=== PATIENT | female | born 1990 | race Two or more races ===

== ENCOUNTER 2022-07-25 01:44 | Inpatient (IN) | payer MEDICAID ==
[2022-07-25] VITALS (10 sets, daily range): BP systolic 125–166; BP diastolic 71–113
[~2022-07-25] VITALS: Ht 160 cm; Wt 65.8 kg
[2022-07-25] MEDS ORDERED: LACTATED RINGER'S 1,000 ML IV ONE (02:15)
[2022-07-25] MEDS ORDERED: hydrALAZINE HCL 20 MG/ML VL IV PRN (02:30)
[2022-07-25 02:31] LABS: Basophils # (auto) 0.2 10 ^3/uL (0-0.2); Basophils % (auto) 1.4 % (0.0-2.0); Eosinophils # (auto) 0.1 10 ^3/uL (0-0.8); Eosinophils % (auto) 0.9 % (0.0-7.0); Hematocrit 31.6 % (36.0-46.0); Hemoglobin 10.2 g/dL (12.2-16.2); Lymphocytes % (auto) 23.4 % (10.0-50.0); Mean Corpuscular Hemoglobin 24.8 pg (28.0-32.0); Mean Corpuscular Hgb Conc. 32.4 g/dL (32.0-36.0); Mean Corpuscular Volume 76.6 fL (80.0-100.0); Monocytes # (auto) 0.7 10 ^3/uL (0-1.3); Monocytes % (auto) 5.3 % (0.0-12.0); Neutrophils # (auto) 8.9 10 ^3/uL (1.6-8.6); Nucleated Red Blood Cells % 0.1 %; Red Blood Cells 4.12 10^6/uL (4.0-5.20); Red Cell Distribution Width 17.5 % (11.8-14.3); White Blood Cell 12.9 10^3/uL (4.4-10.8)
[2022-07-25] MEDS ORDERED: PHISODERM TOP SOLN 240ML BTL TOP PRN (02:45)
[2022-07-25] MEDS ORDERED: PROMETHAZINE HCL 25 MG/ML 1ML IV PRN (02:45)
[2022-07-25] MEDS ORDERED: DERMOPLAST 60ML BOTTLE TOP PRN (02:45)
[2022-07-25] MEDS ORDERED: miSOPROStol 50 MCG per PRE-CUT 1/2 TAB PO PRN (02:45)
[2022-07-25] MEDS ORDERED: WITCH HAZEL-GLYCERIN PAD TOP PRN (02:45)
[2022-07-25] MEDS ORDERED: LIDOCAINE 2%HCL (LOCAL ANESTH.) INJ 20ML MDV IJ PRN (02:45)
[2022-07-25] MEDS ORDERED: LACTATED RINGER'S 1,000 ML IV SCH (02:45)
[2022-07-25] MEDS ORDERED: BUTORPHANOL TARTRATE 2 MG/1 ML VIAL IV PRN ×2 (02:45)
[2022-07-25 02:49] LABS: Albumin 2.5 g/dL (3.4-5.0); Calcium 8.1 mg/dL (8.5-10.1); Potassium 4.1 mmol/L (3.5-5.1); Uric Acid 5.2 mg/dL (2.6-6.0)
[2022-07-25] MEDS ORDERED: CARBOPROST TROMETHAMINE 250 MCG/1ML VIAL IM ONE ×3 (02:49→06:00)
[2022-07-25 02:52] LABS: BUN/Creatinine Ratio 12.5 (10.0-20.0); Bilirubin, Total 0.2 mg/dL (0.2-1.0); Total Protein 6.4 g/dL (6.4-8.2)
[2022-07-25 02:53] LABS: INR 0.84 (0.9-1.15); Partial Thromboplastin Time 26.8 sec (24.6-33.4)
[2022-07-25] MEDS ORDERED: fentaNYL CITRATE 5 ML ONE (02:58)
[2022-07-25] MEDS ORDERED: MIDAZOLAM HCL 2MG/2ML 2ml VIAL (1mg/ml) ONE (02:58)
[2022-07-25] MEDS ORDERED: ceFAZolin 1GM/50ML 50 ML IV SCH ×3 (03:00→11:15)
[2022-07-25] MEDS ORDERED: MORPHINE SULFATE 4 MG/ML SYR/VIAL IV PRN (03:30)
[2022-07-25] MEDS ORDERED: GUM (CHEWING) 1 GUM CHEW CHEW ONE (03:30)
[2022-07-25] MEDS ORDERED: LACT. RINGERS/OXYTOCIN 20UNITS 1,000 ML IV ONE (03:30)
[2022-07-25] MEDS ORDERED: ONDANSETRON HCL 4 MG/2 ML VIAL IV PRN ×2 (03:30→04:45)
[2022-07-25] MEDS ORDERED: LIDOCAINE HCL 2 %PF INJ 10ML AMP IJ ONE (03:42)
[2022-07-25] MEDS ORDERED: ONDANSETRON HCL 4 MG/2 ML VIAL ONE (03:42)
[2022-07-25] MEDS ORDERED: ceFAZolin 1GM VL ONE (03:43)
[2022-07-25] MEDS ORDERED: ROCURONIUM 10MG/ML 10ML VIAL IV ONE (03:45)
[2022-07-25 03:54] LABS: Urine Amorphous Crystal MOD /hpf (None Seen); Urine Bacteria FEW /hpf (None Seen); Urine Blood Negative /uL (Negative); Urine Mucus FEW (None Seen); Urine Specific Gravity 1.031 (1.001-1.035); Urine WBC 4 /hpf (0 - 5)
[2022-07-25 04:05] LABS: Alcohol, Urine < 3.0 mg/dL (0-10); Amphetamine Screen, Urine POSITIVE (NEGATIVE); Barbiturate Scree,Urine NEGATIVE (NEGATIVE); Benzodiazephine Screen, Urine NEGATIVE (NEGATIVE); Cannabinoid Screen, Urine NEGATIVE (NEGATIVE); Cocaine Screen, Urine NEGATIVE (NEGATIVE); Opiate Scree,Urine NEGATIVE (NEGATIVE); Phencyclidine Screen, Urine NEGATIVE (NEGATIVE); Protein, Urine 20.6 mg/dL (0.0-11.9)
[2022-07-25 04:11] LABS: Lymphocytes # (auto) 3.8 10 ^3/uL (0.4-5.4); Nucleated Red Blood Cells % 0.1 %
[2022-07-25 04:12] LABS: Basophils # (auto) 0.2 10 ^3/uL (0-0.2); Basophils % (auto) 0.9 % (0.0-2.0); Eosinophils # (auto) 0.1 10 ^3/uL (0-0.8); Eosinophils % (auto) 0.8 % (0.0-7.0); Hematocrit 37.8 % (36.0-46.0); Hemoglobin 11.9 g/dL (12.2-16.2); Lymphocytes % (auto) 21.6 % (10.0-50.0); Mean Corpuscular Hemoglobin 25.5 pg (28.0-32.0); Mean Corpuscular Hgb Conc. 31.4 g/dL (32.0-36.0); Mean Corpuscular Volume 81.3 fL (80.0-100.0); Monocytes # (auto) 1.4 10 ^3/uL (0-1.3); Monocytes % (auto) 7.7 % (0.0-12.0); Neutrophils # (auto) 12.2 10 ^3/uL (1.6-8.6); Red Blood Cells 4.64 10^6/uL (4.0-5.20); White Blood Cell 17.6 10^3/uL (4.4-10.8)
[2022-07-25] MEDS ORDERED: SUCCINYLCHOLINE CHLORIDE 20 MG/ML 10ML VIAL IV ONE (04:19)
[2022-07-25] MEDS ORDERED: OXYTOCIN 10UNIT/ML 1ML VIAL ONE (04:38)
[2022-07-25] MEDS ORDERED: HYDROmorphone HCL 2 MG/ML VL/or syr IV PRN ×2 (04:45)
[2022-07-25] MEDS: HYDROmorphone HCL 2 MG/ML VL/or syr IV PRN ×2 (06:34→08:04)
[2022-07-25 06:36] LABS: Eosinophils # (auto) 0 10 ^3/uL (0-0.8); Eosinophils % (auto) 0.2 % (0.0-7.0); Mean Corpuscular Hemoglobin 25.4 pg (28.0-32.0); Nucleated Red Blood Cells % 0.2 %
[2022-07-25 06:38] LABS: Basophils # (auto) 0.2 10 ^3/uL (0-0.2); Basophils % (auto) 0.9 % (0.0-2.0); Hemoglobin 12.5 g/dL (12.2-16.2); Lymphocytes # (auto) 2.3 10 ^3/uL (0.4-5.4); Lymphocytes % (auto) 10.1 % (10.0-50.0); Mean Corpuscular Volume 79.2 fL (80.0-100.0); Monocytes # (auto) 0.8 10 ^3/uL (0-1.3); Monocytes % (auto) 3.4 % (0.0-12.0); Neutrophils # (auto) 19.3 10 ^3/uL (1.6-8.6); Neutrophils % (auto) 85.4 % (37.0-80.0); Red Blood Cells 4.93 10^6/uL (4.0-5.20); Red Cell Distribution Width 17.7 % (11.8-14.3); White Blood Cell 22.6 10^3/uL (4.4-10.8)
[2022-07-25] MEDS: DIPHENOXYLATE W/ATROPINE 2.5 MG TAB PO SCH ×2 (06:42→22:00)
[2022-07-25] MEDS ORDERED: LIDOCAINE 2% (LOCAL ANESTH.) PF 5ml SDV ONE (07:37)
[2022-07-25] MEDS ORDERED: BUPIVACAINE W/ EPINEPH 0.25% INJ 50ML MDV ONE (07:41)
[2022-07-25] MEDS ORDERED: DexAMETHasone SOD PHOS 4 MG/1ML SDV INJ ONE (07:41)
[2022-07-25] MEDS: ACETAMINOPHEN IV 1000 MG/100ML (10MG/ML) IV PRN ×2 (08:05→17:26)
[2022-07-25] MEDS ORDERED: NALOXONE HCL 0.4 MG/ML VIAL IV PRN (08:45)
[2022-07-25] MEDS ORDERED: DOCU-94 PO (09:10)
[2022-07-25] MEDS ORDERED: FER325T PO (09:10)
[2022-07-25] MEDS ORDERED: HYDR-4902 PO (09:10)
[2022-07-25] MEDS ORDERED: IBUP800T27 PO (09:10)
[2022-07-25] MEDS: LACTATED RINGER'S 1,000 ML IV SCH ×2 (12:10→20:55)
[2022-07-25] MEDS: ceFAZolin 1GM/50ML 50 ML IV SCH ×2 (13:50→20:56)
[2022-07-25] MEDS ORDERED: LABETALOL HCL 200 MG TAB PO SCH (16:00)
[2022-07-25 17:49] LABS: Alcohol, Urine < 3.0 mg/dL (0-10); Amphetamine Screen, Urine POSITIVE (NEGATIVE); Barbiturate Scree,Urine NEGATIVE (NEGATIVE); Benzodiazephine Screen, Urine POSITIVE (NEGATIVE); Cannabinoid Screen, Urine NEGATIVE (NEGATIVE); Cocaine Screen, Urine NEGATIVE (NEGATIVE); Phencyclidine Screen, Urine NEGATIVE (NEGATIVE)
[2022-07-25 17:56] LABS: Opiate Scree,Urine POSITIVE (NEGATIVE)
[2022-07-26] VITALS (7 sets, daily range): BP systolic 113–123; BP diastolic 63–76
[2022-07-26] MEDS: ACETAMINOPHEN IV 1000 MG/100ML (10MG/ML) IV PRN (03:09)
[2022-07-26] MEDS: ceFAZolin 1GM/50ML 50 ML IV SCH (05:02)
[2022-07-26] MEDS: LACTATED RINGER'S 1,000 ML IV SCH ×3 (05:06→16:45)
[2022-07-26] MEDS: LABETALOL HCL 200 MG TAB PO SCH ×2 (06:00→18:00)
[2022-07-26 06:07] LABS: Rubella Antibodies, IgG 1.07 index (Immune >0.99)
[2022-07-26 06:23] LABS: Eosinophils # (auto) 0 10 ^3/uL (0-0.8)
[2022-07-26 06:29] LABS: Basophils # (auto) 0.1 10 ^3/uL (0-0.2); Basophils % (auto) 0.5 % (0.0-2.0); Hematocrit 29.3 % (36.0-46.0); Hemoglobin 9.5 g/dL (12.2-16.2); Lymphocytes # (auto) 2.4 10 ^3/uL (0.4-5.4); Lymphocytes % (auto) 13.3 % (10.0-50.0); Mean Corpuscular Hemoglobin 25.4 pg (28.0-32.0); Mean Corpuscular Hgb Conc. 32.5 g/dL (32.0-36.0); Mean Corpuscular Volume 78.3 fL (80.0-100.0); Monocytes # (auto) 0.9 10 ^3/uL (0-1.3); Monocytes % (auto) 4.9 % (0.0-12.0); Neutrophils # (auto) 14.7 10 ^3/uL (1.6-8.6); Neutrophils % (auto) 81.3 % (37.0-80.0); Nucleated Red Blood Cells % 0.1 %; Red Blood Cells 3.75 10^6/uL (4.0-5.20)
[2022-07-26] MEDS ORDERED: HYDROcodone-ACET 5/325MG TAB PO PRN ×2 (06:45)
[2022-07-26] MEDS ORDERED: BISACODYL 10 MG RECT SUPP PR PRN (06:45)
[2022-07-26] MEDS: IBUPROFEN 800 MG TAB PO PRN ×2 (09:03→19:07)
[2022-07-26] MEDS: DIPHENOXYLATE W/ATROPINE 2.5 MG TAB PO SCH ×2 (10:00→22:00)
[2022-07-26] MEDS: DOCUSATE SOD 100 MG CAP PO SCH ×2 (10:16→22:15)
[2022-07-26] MEDS: DOCUSATE CALCIUM 240 MG CAP PO SCH (10:16)
[2022-07-26] MEDS: SIMETHICONE 80 MG CHEWABLE TABLET PO SCH ×3 (11:45→22:15)
[2022-07-27 02:30] VITALS: BP 115/70
[2022-07-27] MEDS: LACTATED RINGER'S 1,000 ML IV SCH (02:45)
[2022-07-27] MEDS: SIMETHICONE 80 MG CHEWABLE TABLET PO SCH (05:33)
[2022-07-27] MEDS: IBUPROFEN 800 MG TAB PO PRN (05:33)
[2022-07-27] MEDS: LABETALOL HCL 200 MG TAB PO SCH (06:00)
[2022-07-27 06:45] VITALS: BP 120/73
[2022-07-27 09:22] LABS: Alcohol, Urine < 3.0 mg/dL (0-10); Amphetamine Screen, Urine POSITIVE (NEGATIVE); Barbiturate Scree,Urine NEGATIVE (NEGATIVE); Benzodiazephine Screen, Urine NEGATIVE (NEGATIVE); Cannabinoid Screen, Urine NEGATIVE (NEGATIVE); Cocaine Screen, Urine NEGATIVE (NEGATIVE)
[2022-07-27 09:31] LABS: Opiate Scree,Urine NEGATIVE (NEGATIVE); Phencyclidine Screen, Urine NEGATIVE (NEGATIVE)
[2022-07-27] MEDS: DIPHENOXYLATE W/ATROPINE 2.5 MG TAB PO SCH (10:00)
[2022-07-27] MEDS: DOCUSATE CALCIUM 240 MG CAP PO SCH (10:23)
[2022-07-27] MEDS: DOCUSATE SOD 100 MG CAP PO SCH (10:23)
[2022-07-27 10:45] VITALS: BP 127/79
== END 2022-07-27 12:28 | disposition left against medical advice (07) | DRG 788 ==
LOC: OBSVTOIN 01:44 → LDRP 01:44
PROVIDERS: ADMIT Obstetrics & Gynecology; ATTEND Obstetrics & Gynecology
PROC: 30233N1 Transfusion of Nonautologous Red Blood Cells into Peripheral Vein, Percutaneous Approach (ICD-10-PCS; 2022-07-25)
PROC: 10D00Z1 Extraction of Products of Conception, Low, Open Approach (ICD-10-PCS; principal; 2022-07-25 02:56)
DX: O32.1XX0 Maternal care for breech presentation, not applicable or unspecified (principal); Z3A.37 37 weeks gestation of pregnancy; Z37.0 Single live birth; Z53.29 Procedure and treatment not carried out because of patient's decision for other reasons; D50.9 Iron deficiency anemia, unspecified; O99.02 Anemia complicating childbirth
CPT/HCPCS: 36415; 59025; 76805; 80053; 80307; 81001; 81002; 82570; 82948; 82962; 84112; 84156; 84550; 85025; 85610; 85730; 86592; 86703; 86762; 86850; 86900; 86901; 86920; 87340; 94760; 96360; 96361; 96365; 96366; G0378; J0131; J0330; J0690; J1100; J2001; J2250; J2405; J7060